=== PATIENT | female | born 1990 | race Caucasian/White ===

== ENCOUNTER 2020-05-21 07:02 | Outpatient (RCR) | payer OTHER, SELFPAY ==
[2020-05-21 11:51] LABS: COVID-19 Test Negative (Negative)
[2020-06-04 08:54] LABS: COVID-19 Test Negative (Negative)
[2020-06-29 11:54] LABS: SARS-COV-2 PCR UMBRL Not Detected
[2020-07-11 10:02] LABS: SARS-COV-2 PCR UMBRL Not Detected
[2020-07-16 11:27] LABS: COVID-19 Test Negative (Negative)
== END 2020-05-21 07:03 | disposition home or self-care (01) ==
LOC: HO.EMPCOV 07:02
PROVIDERS: Visit Provider Internal Medicine
DX: Z20.828 Contact with and (suspected) exposure to other viral communicable diseases (principal)
CPT/HCPCS: 36415; 87635; C9803; U0003

== ENCOUNTER → 2024-09-02 14:05 | Outpatient (BNVA) | payer OTHER, SELFPAY | PROVIDERS: Visit Provider Physician Assistant Medical | DX: Z13.89 Encounter for screening for other disorder (principal) | CPT/HCPCS: 72110; 99202 ==

== ENCOUNTER → 2024-09-09 15:13 | Outpatient (BNVA) | payer OTHER, SELFPAY | PROVIDERS: Visit Provider Physician Assistant Medical | DX: Z13.89 Encounter for screening for other disorder (principal) | CPT/HCPCS: 99213 ==

== ENCOUNTER → 2024-09-23 11:38 | Outpatient (BNVA) | payer OTHER, SELFPAY | PROVIDERS: Visit Provider Physician Assistant Medical | DX: Z13.89 Encounter for screening for other disorder (principal) | CPT/HCPCS: 99213 ==

== ENCOUNTER → 2024-10-08 11:57 | Outpatient (BNVA) | payer OTHER, SELFPAY | PROVIDERS: Visit Provider Physician Assistant | DX: Z13.89 Encounter for screening for other disorder (principal) | CPT/HCPCS: 73080; 99204 ==

== ENCOUNTER → 2024-10-15 09:08 | Outpatient (BNVA) | payer OTHER, SELFPAY | PROVIDERS: Visit Provider Physician Assistant | DX: Z13.89 Encounter for screening for other disorder (principal) | CPT/HCPCS: 99213 ==